=== PATIENT | female | born 1990 | race Caucasian/White ===

== ENCOUNTER → 2021-10-02 | Outpatient (CLI) | payer OTHER, SELFPAY ==
[2021-10-02 12:35] LABS: Thyroid Stim Hormone (TSH) 1.83 uIU/mL (0.358-3.74)
== END | disposition home or self-care (01) ==
PROVIDERS: PCP Internal Medicine; Visit Provider Internal Medicine
DX: Z00.00 Encounter for general adult medical examination without abnormal findings (principal); Z83.49 Family history of other endocrine, nutritional and metabolic diseases
CPT/HCPCS: 36415; 84443

== ENCOUNTER → 2022-07-31 | Outpatient (CLI) | payer OTHER, SELFPAY ==
[2022-08-07 17:16] LABS: HPV Reflexed? NOT INDICATED
== END | disposition home or self-care (01) ==
LOC: LABSPEC 10:29
PROVIDERS: PCP Internal Medicine; Visit Provider Nurse Practitioner Women's Health
DX: Z12.4 Encounter for screening for malignant neoplasm of cervix (principal)
CPT/HCPCS: 88175; G0145

== ENCOUNTER → 2024-01-12 | Outpatient (CLI) | payer BC, SELFPAY ==
[2024-01-12 12:39] LABS: Absolute Lymphocyte Count 1.04 X10^3/uL (0.83-4.51); Absolute Neutrophil Count 5.6 X10^3/uL (2.0-7.7); Basophil# 0.02 X10^3/uL; Basophil% 0.3 % (0-1); Eosinophil# 0.08 X10^3/uL; Eosinophils% 1.1 % (0-5); Hematocrit 39.2 % (37-47); Hemoglobin 13.3 g/dL (12.0-15.0); Lymphocyte # 1.04 X10^3/ul (0.83-4.51); Lymphocyte % 14.5 % (19-41); Mean Corp Hgb Conc 33.9 g/dL (32-36); Mean Corpuscular Hgb 27.9 pg (27.0-32.0); Mean Corpuscular Volume 82.2 fL (81-99); Mean Platelet Vol. 11.4 fl (6.2-12.0); Monocyte# 0.43 X10^3/uL; NRBC Flagged by Analyzer 0 % (0-5); Neutrophil # 5.57 X10^3/uL (2.7-7.7); Neutrophil % 77.8 % (47-70); Platelet Count 233 K/mm3 (150-450); RBC Distribution Width CV 13.4 % (11.6-14.6); RBC Distribution Width SD 39.7 fl (35.1-43.9); Red Blood Count 4.77 M/mm3 (4.2-5.4); White Blood Count 7.2 K/mm3 (4.4-11.0)
[2024-01-12 13:39] LABS: HIV - WCH Non-Reactive (Nonreactive); Hepatitis B Surface Antigen Non-Reactive (Nonreactive); Hepatitis C Antibody Non-Reactive (Nonreactive); Rubella IgG Reactive (Nonreactive)
[2024-01-15 06:10] LABS: Chlamydia By Nucleic Acid AMP Negative (Negative); Gonococcus By Nucleic Acid AMP Negative (Negative)
== END | disposition home or self-care (01) ==
PROVIDERS: PCP Internal Medicine; Referring Provider Obstetrics & Gynecology; Visit Provider Obstetrics & Gynecology
DX: Z34.01 Encounter for supervision of normal first pregnancy, first trimester (principal); Z31.430 Encounter of female for testing for genetic disease carrier status for procreative management
CPT/HCPCS: 36415; 85025; 86703; 86762; 86803; 86850; 86900; 86901; 87086; 87088; 87340; 87491; 87591

== ENCOUNTER → 2024-03-10 | Outpatient (CLI) | payer BC, SELFPAY ==
[2024-03-10 11:40] LABS: Syphilis Antibodies Non-reactive
== END | disposition home or self-care (01) ==
LOC: BWCLAB 10:18
PROVIDERS: PCP Internal Medicine; Referring Provider Obstetrics & Gynecology; Visit Provider Obstetrics & Gynecology
DX: Z34.90 Encounter for supervision of normal pregnancy, unspecified, unspecified trimester (principal)
CPT/HCPCS: 36415; 86780

== ENCOUNTER → 2024-04-06 | Outpatient (CLI) | payer BC, SELFPAY | END | disposition home or self-care (01) | LOC: BWCLAB 11:55 | PROVIDERS: PCP Internal Medicine; Referring Provider Obstetrics & Gynecology; Visit Provider Obstetrics & Gynecology | DX: Z36.9 Encounter for antenatal screening, unspecified (principal) ==

== ENCOUNTER → 2024-05-04 | Outpatient (CLI) | payer BC, SELFPAY ==
[2024-05-04 14:38] LABS: Absolute Lymphocyte Count 1.26 X10^3/uL (0.83-4.51); Basophil# 0.04 X10^3/uL; Basophil% 0.4 % (0-1); Eosinophil# 0.06 X10^3/uL; Eosinophils% 0.6 % (0-5); Hemoglobin 12.1 g/dL (12.0-15.0); Lymphocyte # 1.26 X10^3/ul (0.83-4.51); Lymphocyte % 12.6 % (19-41); Mean Corp Hgb Conc 33.6 g/dL (32-36); Mean Corpuscular Hgb 29.4 pg (27.0-32.0); Mean Corpuscular Volume 87.6 fL (81-99); Mean Platelet Vol. 10.4 fl (6.2-12.0); Monocyte# 0.57 X10^3/uL; Monocyte% 5.7 % (0-10); NRBC Flagged by Analyzer 0 % (0-5); Neutrophil # 7.95 X10^3/uL (2.7-7.7); Neutrophil % 79.6 % (47-70); Platelet Count 195 K/mm3 (150-450); RBC Distribution Width CV 13.5 % (11.6-14.6); RBC Distribution Width SD 43.1 fl (35.1-43.9); Red Blood Count 4.11 M/mm3 (4.2-5.4)
[2024-05-04 14:47] LABS: Glucose Challenge Gest 1H 50g 113 mg/dL (70-140)
[2024-05-04 15:19] LABS: HIV - WCH Non-Reactive (Nonreactive); Syphilis Antibodies Non-reactive
== END | disposition home or self-care (01) ==
PROVIDERS: PCP Internal Medicine; Referring Provider Obstetrics & Gynecology; Visit Provider Obstetrics & Gynecology
DX: Z34.90 Encounter for supervision of normal pregnancy, unspecified, unspecified trimester (principal); Z13.1 Encounter for screening for diabetes mellitus
CPT/HCPCS: 36415; 82950; 85025; 86703; 86780

== ENCOUNTER → 2024-07-20 | Outpatient (CLI) | payer BC, SELFPAY | END | disposition home or self-care (01) | LOC: LABSPEC 11:17 | PROVIDERS: PCP Internal Medicine; Referring Provider Obstetrics & Gynecology; Visit Provider Obstetrics & Gynecology | DX: Z34.02 Encounter for supervision of normal first pregnancy, second trimester (principal) | CPT/HCPCS: 87081 ==

== ENCOUNTER 2024-08-17 19:15 | Inpatient (IN) | payer BC, SELFPAY ==
[2024-08-17 19:19] VITALS: BMI 36.1
[2024-08-17 19:47] VITALS: BP 120/78; PULSE 86; PULSE 88; RESP 16; TEMP 36.8; O2SAT 97
[2024-08-17] MEDS: Lactated Ringers 1,000 ML 50 ML IV (20:15)
[2024-08-17 20:24] LABS: Absolute Lymphocyte Count 1.74 X10^3/uL (0.83-4.51); Absolute Neutrophil Count 9.3 X10^3/uL (2.0-7.7); Basophil# 0.04 X10^3/uL; Basophil% 0.3 % (0-1); Eosinophil# 0.08 X10^3/uL; Eosinophils% 0.7 % (0-5); Hematocrit 38.7 % (37-47); Hemoglobin 13.4 g/dL (12.0-15.0); Lymphocyte # 1.74 X10^3/ul (0.83-4.51); Lymphocyte % 14.5 % (19-41); Mean Corp Hgb Conc 34.6 g/dL (32-36); Mean Corpuscular Hgb 29.8 pg (27.0-32.0); Mean Corpuscular Volume 86.2 fL (81-99); Mean Platelet Vol. 10.8 fl (6.2-12.0); Monocyte# 0.73 X10^3/uL; Monocyte% 6.1 % (0-10); NRBC Flagged by Analyzer 0 % (0-5); Neutrophil # 9.29 X10^3/uL (2.7-7.7); Neutrophil % 77.2 % (47-70); Platelet Count 204 K/mm3 (150-450); RBC Distribution Width CV 13.8 % (11.6-14.6); RBC Distribution Width SD 42.8 fl (35.1-43.9); Red Blood Count 4.49 M/mm3 (4.2-5.4)
[2024-08-17] MEDS: miSOPROStol 25 MCG TABLET PO (20:51)
[2024-08-17 21:07] LABS: Syphilis Antibodies Nonreactive (Nonreactive)
[2024-08-17 23:48] VITALS: BP 133/71; PULSE 83
[2024-08-17 23:49] VITALS: RESP 16; TEMP 36.6
[2024-08-18] VITALS (73 sets, daily range): BP systolic 110–164; BP diastolic 56–88; PULSE 76–124; RESP 16–20; TEMP 36.4–37.2; O2SAT 92–100
[2024-08-18] MEDS: miSOPROStol 25 MCG TABLET PO ×2 (01:10→05:14)
--- NOTE | 2024-08-18 07:29 | HP.PCM.OB_ITS ---
HPI - General General Date of Admission: 08/17/24 HPI Narrative DARY RODRIGUEZ, is a 33 F who presents for IOL secondary to postdates. she dneies any regular ctx or vb no lof good fm Maternal Data Information MEL Calculator Estimated Delivery Date Method Current WG Current Estimate 08/10/24 LMP (Uncertain) 41w 1d Other Estimates 08/09/24 Ultrasound #1 41w 2d PFSH PFSH Medical History Encounter for Nexplanon removal Seasonal allergies Home Medications ?Medication ?Instructions ?Recorded ?Last Taken ?Type docosahexaenoic acid 200 mg mg PO 01/02/24 0 08/17/24 History capsule ( DHA) Allergy/AdvReac Type Severity Reaction Status Date / Time No Known Allergies Allergy Verified 08/17/24 19:42 Family History Mother Thyroid disorder Father Eye disease Mental health disorder Grandmother Thyroid disorder Aunt Thyroid disorder Grandmother CVA (cerebral vascular accident) Surgical History H/O oral surgery Social History adopted: No household members: spouse current occupational status: employed 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 current occupational exposures/hazards: No pets and animals: Yes ( taking care of litter box ) pets and animals: cat(s) history of recent travel: Yes ([place]- November 2023) out of state: No out of country: Yes sexually active: Yes Smoking Status: Never smoker Electronic Cigarette Use: not used alcohol intake: current alcohol intake frequency: a few times a month details: Not while substance use type: does not use well-balanced diet: daily or most days caffeine: Yes Type: coffee eating out: 1-3 times/week during the past year weight has: remained stable what type of physical activity do you participate in: walking and yoga frequency: 3-4 times per week duration: 30-45 minutes/day coty/hindu: Anabaptism seatbelt use: always do you feel safe at home: Yes 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 History 1 Elective abortions Hx Para 0 Spontaneous abortions Hx # Term Pregnancies Ectopic pregnancies Hx # Pregnancies Multiple births # of living children Visit Details Expected Delivery Route/Plan Labor Preferences- CB/BF classes: encouraged labor support person: Yo labor intervention preferences: open to touch, massage, guided breathing pain management options preferred: epidural cut cord/dad catch: yes : yes PP control planned: discussed discussed possible routes of delivery and associated risks: [] special requests: [] Plans Covid status: [] Flu vaccine: given Tdap vaccine: given Rhogam: na LARC form signed: yes movement and labor precautions reviewed. Problem list reviewed and updated with the most current plan of care details and appropriate orders placed. Relevant counseling for the gestational age provided. Continue routine care and follow up unless otherwise noted in visit notes/problem list details OB Flowsheet Initial Weight: Not Recorded Date -?-?-?-?-?-?-?-?-?-?-?-?- EGA Weight BP Urine Prot -?-?-?-?-?-?-?-?-?-?-?-?- Glucose FHR FuHt Pres Dilation -?-?-?-?-?-?-?-?-?-?-?-?- Effaced St Visit Note 01/12/24 -?-?-?-?-?-?-?-?-?-?--?-?- 9w 6d 194 lb 6 oz 119/68 -?-?-?-?-?-?-?-?-?-?-?-?- 175 -?-?-?-?-?-?-?-?-?-?-?-?- JV- CRL measures 10 weeks today. mild nausea. desires NIPT and carrier test and flu today. 02/09/24 -?-?-?-?-?-?-?-?-?-?-?-?- 13w 6d 196 lb 115/73 Negative -?-?-?-?-?-?-?-?-?-?-?-?- Negative 145 -?-?-?-?-?-?-?-?-?-?-?-?- KW- no vb/belia ng. M US ordered. 03/10/24 -?-?-?-?-?-?-?-?-?-?-?-?- 18w 1d 205 lb 2 oz 116/80 Nega tive -?-?--?-?-?-?-?-?-?-?-?-?- Negative 155 -?-?-?-?-?-?-?-?-?-?-?-?- JV- patient comp lains of a persistent cough at night time. recommend trying 20 mg of pepcid at bedtime and if no improvement will order a CXR 04/06/24 -?-?-?-?-?-?-?-?-?-?-?-?- 22w 0d 208 lb 6 oz 121/74 Nega tive -?-?-?-?-?-?-?-?-?-?-?-?- Negative 145 -?-?-?-?-?-?-?-?-?-?-?-?- Sm- no vb crampi ng afp drawn 05/04/24 -?-?-?-?-?-?-?-?-?-?-?-?- 26w 0d 215 lb 4 oz 128/74 Nega tive -?-?-?-?-?-?-?-?-?-?-?--?- Negative 147 -?-?-?-?-?-?-?-?-?-?-?-?- MH-No Vb, LOF. G ood Fm. 28 wk labs pending. Larc 06/07/24 -?-?-?-?-?-?-?-?-?-?-?-?- 30w 6d 223 lb 8 oz 108/73 Nega tive -?-?-?-?-?-?-?-?-?-?-?-?- Negative 160 30 -?-?-?-?-?-?-?-?-?-?-?-?- KW- no vb/lof/ct x. good fm. tdap today. passed glucose 06/22/24 -?-?-?-?-?-?-?-?-?-?-?-?- 33w 0d 226 lb 2 oz 128/79 Nega tive -?-?-?-?-?-?-?-?-?-?-?-?- Negative 140 31 -?-?-?-?-?-?-?-?-?-?-?-?- Sm- no vb lof go od fm no reuglar ctx 07/05/24 -?-?-?-?-?-?-?-?-?-?-?-?- 34w 6d 231 lb 4 oz 117/77 Nega tive -?-?-?-?-?-?-?-?-?-?-?-?- Negative 140 35 -?-?-?-?-?-?-?-?-?-?-?-?- KW- no vb/lof/ct x. good fm. discussed RSV vaccine. 07/20/24 -?-?-?-?-?-?-?-?-?-?-?-?- 37w 0d 234 lb 4 oz 129/80 Nega tive -?-?-?-?-?-?-?-?-?-?-?-?- Negative 150 37 Cephalic 0 .5 -?-?-?-?-?-?-?-?-?-?-?-?- 0 -3 SM- no vb lof good fm no regular ctx gbs collected 07/26/24 -?-?-?-?-?-?-?-?-?-?-?-?- 37w 6d 231 lb 4 oz 127/85 Nega tive -?-?-?-?-?-?-?-?-?-?-?-?- Negative 138 37 Cephalic 1 -?-?-?-?-?-?-?--?-?-?-?-?- 20 -2 KW- no vb/ lof/ctx. good fm. gbs neg. 08/02/24 -?-?-?-?-?-?-?-?-?-?-?-?- 38w 6d 237 lb 132/83 Negative -?-?-?-?-?-?-?-?-?-?-?-?- Negative 140 37 Cephalic 1 -?-?-?-?-?-?-?-?-?-?-?-?- 20 -1 JV- no lof , vaginal bleeding, or dec fm. very posterior cervix, low station. labor precautions discussed. 08/09/24 -?-?-?-?-?-?-?-?-?-?-?-?- 39w 6d 236 lb 4 oz 112/77 Nega tive -?-?-?-?-?-?-?-?-?-?-?-?- Negative 137 38 Cephalic 1 -?--?-?-?-?-?-?-?-?-?-?-?- 70 -2 JV- no lof , vaginal bleeding or dec fm. iol set up for august 17 08/16/24 -?-?-?-?-?-?-?-?-?-?-?-?- 40w 6d 238 lb 4 oz 116/77 Nega tive -?-?-?-?-?-?-?-?-?-?-?-?- Negative 140 38 Cephalic 1 -?-?-?-?-?-?-?-?-?-?-?-?- 70 -2 JV- cervix very posterior. has IOL set. no lof, vaginal bleeding, or dec fm. NST FHR Rate Baby A Baseline: 130 Variability:: Moderate Accelerations:: 15 x 15 Decelerations:: None NST Reactive:: Yes FHR Category:: Category I Uterine Activity:: irregular ROS Constitutional Constitutional: Reports systems reviewed and no addt'l complaints, except as documented Eyes Eyes: Denies change in vision ENT HEENT: Reports systems reviewed and no addt'l complaints, except as documented; Denies headache(s) Cardiovascular Cardiovascular: Reports systems reviewed and no addt'l complaints, except as documented; Denies chest pain or dyspnea Respiratory/Chest Respiratory/Chest: Reports systems reviewed and no addt'l complaints, except as documented Gastrointestinal Gastrointestinal: Reports systems reviewed and no addt'l complaints, except as documented; Denies abdominal pain Genitourinary Genitourinary: Reports systems reviewed and no addt'l complaints, except as documented, contractions Details: present (irregular) and movement Details: present; Denies dysuria or genital lesions Musculoskeletal Musculoskeletal: Reports systems reviewed and no addt'l complaints, except as documented Neurologic Neurologic: Reports systems reviewed and no addt'l complaints, except as documented Endocrine Endocrinology: Reports systems reviewed and no addt'l complaints, except as documented Vital Signs Vital Signs Vital Signs: 08/17/24 19:47 08/17/24 19:47 08/17/24 19:47 Temperature Temperature Source Pulse Rate 86 88 Respiratory Rate Blood Pressure 120/78 BP Systolic 120 BP Diastolic 78 Pulse Ox 08/17/24 19:47 08/17/24 19:47 08/17/24 19:47 Temperature Temperature Source Oral Pulse Rate Respiratory Rate 16 Blood Pressure BP Systolic BP Diastolic Pulse Ox 97 08/17/24 19:47 08/17/24 23:48 08/17/24 23:48 Temperature 98.2 F Temperature Source Pulse Rate 83 Respiratory Rate Blood Pressure 133/71 H BP Systolic 133 BP Diastolic 71 Pulse Ox 08/17/24 23:49 08/17/24 23:49 08/17/24 23:49 Temperature 97.8 F Temperature Source Oral Pulse Rate Respiratory Rate 16 Blood Pressure BP Systolic BP Diastolic Pulse Ox 08/18/24 04:01 08/18/24 04:01 08/18/24 04:01 Temperature Temperature Source Pulse Rate 76 77 Respiratory Rate Blood Pressure 118/60 BP Systolic 118 BP Diastolic 60 Pulse Ox 08/18/24 04:01 08/18/24 04:01 08/18/24 04:01 Temperature Temperature Source Oral Pulse Rate Respiratory Rate 16 Blood Pressure BP Systolic BP Diastolic Pulse Ox 96 08/18/24 04:01 08/18/24 05:16 08/18/24 05:16 Temperature 98.0 F Temperature Source Oral Pulse Rate Respiratory Rate 16 Blood Pressure BP Systolic BP Diastolic Pulse Ox 08/18/24 05:16 08/18/24 05:17 08/18/24 05:17 Temperature 97.9 F Temperature Source Pulse Rate 84 Respiratory Rate Blood Pressure 121/80 H BP Systolic 121 BP Diastolic 80 Pulse Ox 08/18/24 07:15 08/18/24 07:15 08/18/24 07:16 Temperature Temperature Source Oral Pulse Rate 84 Respiratory Rate Blood Pressure 130/63 H BP Systolic 130 BP Diastolic 63 Pulse Ox 08/18/24 07:16 08/18/24 07:16 Temperature 98.6 F Temperature Source Pulse Rate Respiratory Rate 16 Blood Pressure BP Systolic BP Diastolic Pulse Ox Weight Weight: 237 lb 3.478 oz Body Mass Index (BMI) 36.1 Physical Exam Const alert, oriented x3, no apparent distress and healthy appearing HEENT normocephalic and moist oral mucous membranes Head and Scalp: atraumatic Neck full ROM, no lymphadenopathy, supple and thyroid normal General: trachea midline Lymph Lymphatic: no lymphadenopathy noted Chest inspection of chest normal Resp normal respiratory effort Cardio regular rate GI soft to palpation and non-tender GI Narrative: gravid Inspection: gravid external exam normal Manual OB Exam: estimated gestational size appropriate, presentation cephalic, dilated, effaced and station Extremity normal to inspection General Extremity: Negative for edema Skin no rashes or lesions noted Neuro no focal motor deficits and deep tendon reflexes 2+ bilaterally Motor Exam: strength 5/5 throughout and clonus absent Psych mental status grossly normal Labs Labs Labs: Blood Type O POSITIVE Antibody Screen NEGATIVE Hct 38.7 % (37-47) Hgb 13.4 g/dL (12.0-15.0) Pap Smear Negative Syphilis Total Ab Nonreactive (Nonreactive) Rubella IgG Antibody Reactive (Nonreactive) Hep Bs Antigen Non-Reactive (Nonreactive) Hepatitis C Antibody Non-Reactive (Nonreactive) Chlamydia DNA (WINDY) Negative (Negative) N.gonorrhoeae DNA (WINDY) Negative (Negative) HIV 1&2 Antibody Non-Reactive (Nonreactive) Glucose 1 Hr 50 gm 113 mg/dL (70-140) Miscellaneous Test Assessment & Plan (1) Family history of autism in sibling: COMMENT: Pt's brother (2) Supervision of normal : QUALIFIERS: Normal : normal first Trimester: second trimester Qualified Code(s): Z34.02 - Encounter for supervision of normal first , second trimester COMMENT: PRR , MEL 08/10/24, Girl Mindi : Yo (3) : QUALIFIERS: Weeks of gestation: 40 weeks Qualified Code(s): Z3A.40 - 40 weeks gestation of COMMENT: GBS NEGATIVE, normal anatomy, NIPT low risk, Carrier testing negative . AFP negative PLAN: Plan Patient presents IOL, plan management for with cytotec now fb and pit. Pain management: plans epidural. GBS negative. Management of any complications: none I have reviewed the [facility] and made any clinically relevant updates.
[2024-08-18] MEDS: 0.9% Normal Saline Single 100 ML IV.SOLN. INTRA-UTER (08:01)
[2024-08-18] MEDS: Oxytocin 15 Units/NS 250ml 15 UNITS/250 ML IV.SOLN 2 UNITS IV (09:29)
[2024-08-18] MEDS: 0.9% Saline Lock 10 ML Syringe IV ×3 (09:29→20:10)
[2024-08-18] MEDS: Ondansetron 4 MG/2 ML Vial IV ×2 (10:07→20:10)
[2024-08-18] MEDS: Nalbuphine 10 MG/ML Ampul IV (10:44)
[2024-08-18] MEDS: Lactated Ringers 1,000 ML 999 ML IV ×2 (12:24→15:10)
[2024-08-18] MEDS: fentaNYL-bupivacaine (epidural) 100 ML BAG EPIDURAL (14:00)
[2024-08-18] MEDS: Lactated Ringers 1,000 ML 200 ML IV (18:00)
[2024-08-18] MEDS: LACTATED RINGERS 500 ML 999 ML IV (18:49)
[2024-08-18] MEDS: Amnioinfusion- 0.9% NS 1,000 ML IV.SOLN. 1000 ML INTRA-UTER (19:10)
[2024-08-18] MEDS: LACTATED RINGERS 500 ML IV (20:05)
--- NOTE | 2024-08-18 21:35 | PCM.PN.BLA ---
Progress Note cat II tracing, restarting pitocin going up slowly to regulate pattern. .
[2024-08-19] VITALS (39 sets, daily range): BP systolic 112–139; BP diastolic 57–77; PULSE 85–130; RESP 15–18; TEMP 36.6–36.9; O2SAT 92–99
[2024-08-19] MEDS: LACTATED RINGERS 500 ML 999 ML IV (00:02)
[2024-08-19] MEDS: Lactated Ringers 1,000 ML 200 ML IV (00:48)
[2024-08-19] MEDS: fentaNYL-bupivacaine (epidural) 100 ML BAG EPIDURAL (00:52)
[2024-08-19] MEDS: Lidocaine 1% (20 ml mdv) 20 ML Vial INFILT ×2 (01:27→02:25)
--- NOTE | 2024-08-19 01:43 | EX.PCM.OBVAG ---
Assessment & Plan (1) Encounter for induction of labor: (2) Family history of autism in sibling: COMMENT: Pt's brother (3) Supervision of normal : QUALIFIERS: Normal : normal first Trimester: second trimester Qualified Code(s): Z34.02 - Encounter for supervision of normal first , second trimester COMMENT: PRR , MEL 08/10/24, Girl Gulshan : Yo (4) : QUALIFIERS: Weeks of gestation: 40 weeks Qualified Code(s): Z3A.40 - 40 weeks gestation of COMMENT: GBS NEGATIVE, normal anatomy, NIPT low risk, Carrier testing negative . AFP negative (5) Vaginal delivery: COMMENT: sm gulshan IOL 41 weeks Maternal Data Information MEL Calculator Estimated Delivery Date Method Current WG Current Estimate 08/10/24 LMP (Uncertain) 41w 2d Other Estimates 08/09/24 Ultrasound #1 41w 3d Vaginal Delivery Maternal Presentation Maternal Presentation: see assessment and plan Vaginal Delivery Information Procedure Performed: Spontaneous Vaginal Delivery Surgeon/Practitioner: Marisol Connolly Pre-Procedure Diagnosis: see assessment and plan Post-Procedure Diagnosis: same Type of anesthesia: Epidural Estimated Blood Loss: 300 Findings Description of procedure: Patient began pushing and delivered the head in the IRA presentation. The head was delivered atraumatically and she delivered through a loose nc x 1, body cord and arm cord. The anterior and posterior shoulders delivered without complication followed by the rest of the and the was placed on the maternal abdomen. Delayed cord clamping was employed for approximately 60 seconds. Cord was clamped and cut and gentle traction was applied to the cord and the placenta delivered spontaneously immediately following it was noted to be intact with three-vessel cord. The perineum and vagina were inspected and was noted to have a right periurethral laceration and a first -degree laceration that was repaired in the usual fashion with 3-0 vicryl rapide . EBL was 300. Patient and tolerated delivery well. Presentation: Vertex Placental Delivery Description: Spontaneous Specimen collected: Yes Description of specimen(s) removed: placenta Coordinator Of Placement learning specialist: No Post Vaginal Deli Medications given after delivery: Other (pitocin) Complication Complications: No Multi Select Codes Urinary/Genital Urinary/Genital CPT Codes: 99716 Vaginal Delivery [facility]
--- NOTE | 2024-08-19 01:44 | DCINST_ITS ---
Discharge Instructions Diet Discharge Diet: No restrictions DC O2, CPAP, BIPAP needs Home O2 Discharge instructions: No Dressing / Incision Discharge Activity: Return to Normal Activity, May Not Drive (while taking narcotic pain medications.) and May Shower May resume sexual activity in: 4-6 weeks Dressing / Incision Call your doctor if your incision/area has: Continuous Slow Oozing, Sudden Increased Bleeding, Increased Pain/ Swelling, Increased Redness and Foul Smelling Discharge Follow Up Care Please Follow Up With: Marisol Connolly MD When: Call [phone] to make an appointment with your doctor in 6 weeks. If you had elevated blood pressure or 4th degree laceration, you will need to be seen in 2 weeks. Test Results: Test results from this visit will be discussed in further detail at your follow- up appointment, if applicable. Discharge Plan Admission Admit Date/Time: 08/17/24 19:15 Attending Provider: Marisol Connolly Primary Care Provider: Anabelle Zarate Discharge Orders/Prescriptions Prescriptions: No Action DHA 200 mg capsule PO Referrals / Follow Up: Anabelle Zarate MD [Primary Care Provider] - Disposition Disposition (needs filled in before D/C Order can be placed): Home, Self Care
[2024-08-19] MEDS: Oxytocin 15 Units/NS 250ml 15 UNITS/250 ML IV.SOLN 83 UNITS IV (02:34)
[2024-08-19] MEDS: Naproxen 500 MG Tablet PO ×2 (03:03→14:12)
[2024-08-19] MEDS: Acetaminophen 500 MG Tablet 1000 MG PO ×3 (04:22→20:47)
[2024-08-20 03:09] VITALS: BP 121/79; PULSE 86; RESP 15; TEMP 36.8; O2SAT 95
[2024-08-20] MEDS: Naproxen 500 MG Tablet PO (05:13)
--- NOTE | 2024-08-20 08:44 | PCM.PN.CNM ---
Subjective Subjective Patient doing well without complaints. Tolerating PO. Ambulating and voiding without difficulty. Feeding well. Denies chest pain, shortness of breath, calf pain/swelling, fevers, chills, lightheadedness. Objective Data Objective Data Vital Signs: Vital Signs Temp Pulse Resp BP Pulse Ox O2 Del Method 98.2 F 86 15 121/79 H 95 Room Air 08/20/24 03:09 08/20/24 03:09 08/20/24 03:09 08/20/24 03:09 08/20/24 03:09 08/20/24 03:09 Oxygen Delivery Method Room Air Weight: 237 lb 3.478 oz Body Mass Index (BMI) 36.1 Intake & Output: Intake and Output for Last 24 Hours 08/18/24 08/19/24 08/20/24 23:59 23:59 23:59 Intake Total 4880.27 / 4880.27 1069.26 / 1069.26 Output Total 350 / 350 1000 / 1000 Balance 4530.27 / 4530.27 69.26 / 69.26 Lab / Micro Data 08/17/24 20:10 Physical Exam Const alert and oriented x3 Lymph Lymphatic: no lymphadenopathy noted Resp normal respiratory effort and normal air movement GI soft to palpation GI Narrative: FF below u Extremity normal to inspection, full ROM and no calf tenderness Skin no rashes or lesions noted Assessment & Plan (1) Vaginal delivery: COMMENT: zoila gaffney IOL 41 weeks PLAN: s/p DANIEL PPD # 1 1. routine post delivery care 2. breast feeding- support given 3. rh positive 4. rubella immune 5. plan for d/c home today
[2024-08-20 09:15] VITALS: BP 112/82; PULSE 90; RESP 16; TEMP 37.5; O2SAT 98
[2024-08-20 11:40] VITALS: BP 121/69; PULSE 96; RESP 16; TEMP 36.8; O2SAT 97
== END 2024-08-20 15:15 | disposition home or self-care (01) | DRG 807 ==
PROVIDERS: Admitting Provider Advanced Practice Midwife; PCP Internal Medicine; Referring Provider Advanced Practice Midwife; Visit Provider Obstetrics & Gynecology
DX: O48.0 Post-term pregnancy (principal); Z37.0 Single live birth; O69.81X0 Labor and delivery complicated by cord around neck, without compression, not applicable or unspecified; O70.0 First degree perineal laceration during delivery; Z3A.41 41 weeks gestation of pregnancy
CPT/HCPCS: 59025; 59050; 85025; 86780; 86850; 86900; 86901; 99221; A4216; G0378; J2405